=== PATIENT | female | born 1955 | race Caucasian/White ===

== ENCOUNTER 2019-08-07 20:32 | Emergency (ER) | payer BC ==
[~2019-08-07] VITALS: Ht 167.6 cm; Wt 80.0 kg
[~2019-08-07 20:32] MED LIST: DIAZ5TAB PO; IBUP800T48 PO
[2019-08-07 20:36] VITALS: BP 134/81; PULSE 82; RESP 19; Ht 167.6 cm; Wt 80.0 kg
[2019-08-07] MEDS ORDERED: IBUPROFEN 800 MG TAB PO ONE (21:00)
== END 2019-08-07 21:59 | disposition home or self-care (01) ==
LOC: E/R 20:32
DX: S13.4XXA Sprain of ligaments of cervical spine, initial encounter (principal); V49.40XA Driver injured in collision with unspecified motor vehicles in traffic accident, initial encounter
CPT/HCPCS: 73562; 73590